=== PATIENT | female | born 1940 | race Caucasian/White ===

== ENCOUNTER 2020-06-30 11:46 | Emergency (ER) | payer OTHER, MEDICAID ==
[~2020-06-30] VITALS: Ht 154.9 cm; Wt 64.4 kg
[2020-06-30 12:03] VITALS: BP_SYST 128
[2020-06-30] MEDS ORDERED: DIPH-TET-PERTUS Vaccine 0.5 ML VIAL (ADACEL) I.M. ONE (12:15)
[2020-06-30] MEDS ORDERED: LIDOCAINE 1% 10 MG/ML, 20 ML MDV INJ ONE (12:15)
[2020-06-30 12:43] VITALS: BP_SYST 128
== END 2020-06-30 12:43 | disposition home or self-care (01) ==
LOC: SED 11:46
DX: S51.811A Laceration without foreign body of right forearm, initial encounter (principal); I10 Essential (primary) hypertension; W25.XXXA Contact with sharp glass, initial encounter; Y93.89 Activity, other specified; Y92.89 Other specified places as the place of occurrence of the external cause; Y99.8 Other external cause status
CPT/HCPCS: 12001; 90471; 90715; 99283; J2001

== ENCOUNTER 2020-07-03 12:23 | Emergency (ER) | payer OTHER, MEDICAID ==
[~2020-07-03] VITALS: Ht 157.5 cm; Wt 64.4 kg
--- NOTE | 2020-07-03 12:35 | NUR ---
Patient to ER bed 03 to gown for evaluation. Side rails up.
[2020-07-03 12:36] VITALS: BP_SYST 147
--- NOTE | 2020-07-03 12:40 | NUR ---
ER Dr. Colunga at bedside examining patient.
[2020-07-03 12:42] VITALS: BP_SYST 147
--- NOTE | 2020-07-03 12:44 | NUR ---
pt to bed 3. alert and oriented. wound dressing removed. wound well approximated and sutures inplace. No drainage noted.
--- NOTE | 2020-07-03 12:50 | NUR ---
Patient given written and verbal discharge instructions and verbalizes understanding. ER MD discussed with patient the results and treatment provided. Patient in stable condition. ID arm band removed. No prescriptions given. Patient educated on pain management and to follow up with PMD. Pain Scale 0. Opportunity for questions provided and answered. Medication side effect fact sheet provided.
== END 2020-07-03 12:50 | disposition home or self-care (01) ==
LOC: SED 12:23
DX: S51.811D Laceration without foreign body of right forearm, subsequent encounter (principal); I10 Essential (primary) hypertension; W45.8XXD Other foreign body or object entering through skin, subsequent encounter
CPT/HCPCS: 99281

== ENCOUNTER 2020-09-12 19:22 | Inpatient (IN) | payer OTHER, MEDICAID ==
[~2020-09-12] VITALS: Ht 154.9 cm; Wt 71.2 kg
[2020-09-12 19:25] VITALS: BP_SYST 167
--- NOTE | 2020-09-12 19:25 | NUR ---
Patient to ER bed 3 to gown for evaluation. Side rails up. Report given to REYNOLD.
--- NOTE | 2020-09-12 19:28 | NUR ---
PT AAO OCCITAN SPEAKING C/O CHEST PAIN X ONE WEEK THAT BECAME WORSE TODAY. PT REPORTS FEELING NUMBNESS IN HER LEFT ARM AND REPORTS PAIN 5-6/10. PT PHYSICIAN TOLD HER TO COME IN FOR EVALUATION. V/S STABLE.
--- NOTE | 2020-09-12 19:30 | NUR ---
ER Dr. PRADO at bedside examining patient.
--- NOTE | 2020-09-12 19:58 | NUR ---
Dr. Baker bedside for pt eval
[2020-09-12] MEDS ORDERED: ASPIRIN 325 MG TABLET PO ONE (20:00)
[2020-09-12 20:25] LABS: BASOPHILS # (AUTO) 0.2 K/uL (0.0-0.2); BASOPHILS % (AUTO) 2.3 % (0.0-2.0); EOSINOPHILS # (AUTO) 0.2 K/uL (0.0-0.4); EOSINOPHILS % (AUTO) 3.4 % (0.0-4.0); HEMATOCRIT 39.4 % (36-48); HEMOGLOBIN 13.1 g/dL (12.0-16.0); LYMPHOCYTES # (AUTO) 2.2 K/uL (1.0-5.5); LYMPHOCYTES % (AUTO) 30.8 % (20.5-51.5); MEAN CORPUSCULAR HEMOGLOBIN 28 pg (27-31); MEAN CORPUSCULAR HGB CONC 33 % (32-36); MEAN CORPUSCULAR VOLUME 86 fL (79.0-98.0); MONOCYTES # (AUTO) 0.8 K/uL (0.0-1.0); MONOCYTES % (AUTO) 11.3 % (1.7-9.3); NEUTROPHILS # (AUTO) 3.7 K/uL (1.8-7.7); NEUTROPHILS % (AUTO) 52.2 % (40.0-70.0); PLATELET COUNT (AUTO) 220 K/uL (130-430); RED CELL DISTRIBUTION WIDTH 14.4 % (9.0-15.0); WHITE BLOOD COUNT (AUTO) 7.1 K/uL (4.8-10.8)
--- NOTE | 2020-09-12 20:33 | NUR ---
Pt taken to Radiology in stable condition
[2020-09-12 20:34] LABS: ANION GAP 11 (5-15); CALCIUM 8.8 mg/dL (8.4-11.0); CHLORIDE 104 mmol/L (98-107); CREATININE 0.44 mg/dL (0.55-1.30); GLUCOSE 96 mg/dL (70-99); POTASSIUM 3.8 mmol/L (3.5-5.1); SODIUM SERUM 141 mmol/L (136-145); UREA NITROGEN, BLOOD 13 mg/dL (8-21)
[2020-09-12 20:36] LABS: PROTHROMBIN TIME 10.1 SECS (9.5-12.5)
[2020-09-12 20:40] LABS: ALANINE AMINOTRANSFERASE 33 U/L (12-78); ASPARTATE AMINOTRANSFERASE 21 U/L (10-37); TOTAL BILIRUBIN 0.2 mg/dL (0.0-1.0)
--- NOTE | 2020-09-12 20:45 | NUR ---
Pt back from Radiology, well tolerated
--- NOTE | 2020-09-12 21:40 | NUR ---
Tele Med consulted with Pt bedside, Dr. Baker aware recommendation is to be admitted for Obs
[2020-09-12] MEDS ORDERED: CLOP75TA32 PO (21:59)
[2020-09-12] MEDS ORDERED: hydrALAZINE HCL 20 MG/ML VIAL IVP ONE (22:00)
[2020-09-12] MEDS ORDERED: NITROGLYCERIN 1 INCH (GM) OINT. TP PRN (22:00)
[2020-09-12] MEDS ORDERED: SIMV40TA2 PO (22:02)
[2020-09-12] MEDS ORDERED: AMLO2.5T2 PO (22:02)
--- NOTE | 2020-09-12 22:08 | NUR ---
Tele bed has been officially requested with Floor
--- NOTE | 2020-09-12 22:30 | NUR ---
Pt taken to CT Scan with Contrast study in stable condition
[2020-09-12 22:37] LABS: BILIRUBIN,URINE NEGATIVE (NEGATIVE); BLOOD, URINE 1+ (NEGATIVE); CLARITY/URINE CLEAR (CLEAR); COLOR,URINE YELLOW (YELLOW); GLUCOSE,URINE NEGATIVE (NEGATIVE); KETONES,URINE NEGATIVE (NEGATIVE); LEUKOCYTE ESTERASE ,URINE NEGATIVE (NEGATIVE); NITRITE, URINE NEGATIVE (NEGATIVE); PROTEIN URINE NEGATIVE (NEGATIVE); UROBILINOGEN,URINE 0.2 (0.2-1.0)
[2020-09-12] MEDS ORDERED: IOHEXOL 350 mgI/mL, 150 ML INFUS..BTL IV ONE (22:41)
[2020-09-12 22:45] LABS: BACTERIA,URINE RARE /HPF (None Seen); WBC,URINE 0-3 /HPF (0-3)
--- NOTE | 2020-09-12 22:48 | NUR ---
Pt back from Radiology, well tolerated
[2020-09-12 23:25] VITALS: BP_SYST 156
--- NOTE | 2020-09-12 23:25 | NUR ---
ADMISSION NOTE Received patient from ER via gurney. Patient admitted with diagnosis of RULE OUT MYOCARDIAL INFARCTION, RULE OUT CVA. Patient is awake, alert, oriented X . Patient oriented to hospital room, call light, toileting, pain management and safety-teach back done. Patient informed that MARTA will be HER nurse and that their room number is 107A. Personal belongings checked and Belongings List documented. Call light within reach.
--- NOTE | 2020-09-12 23:30 | NUR ---
Patient will be admitted to care of Dr. Streeter. Admitted to Tele unit. Will go to room 107. Belongings list completed. Complete and up to date summary report printed. SBAR report to be given at bedside with opportunity for questions.
--- NOTE | 2020-09-12 23:30 | NUR ---
Transfer to Tele via ACLS protocol. Licensed nurse present. IV present no signs or symptoms of infiltration.
--- NOTE | 2020-09-12 23:42 | NUR ---
PATIENT MOOD DURING INITIAL ADMISSION ASSESSMENT, PATIENT WAS ASKED IF SHE HAS BEEN EXPERIENCING ANY STRESS. SHE RESPONDED WITH IMMEDIATELY CRYING AND MOURNING ABOUT THE EVENTS HAPPENING IN [place] AND [place]. SHE STATES SHE FEELS VERY DEPRESSED BECAUSE SHE HAS FAMILY THERE AND SPENT A LARGE AMOUNT OF HER LIFE IN [place].
[2020-09-13] VITALS: BP_SYST 106
--- NOTE | 2020-09-13 01:00 | NUR ---
RN ROUNDS PT RESTING IN BED, BREATHING EVEN AND UNLABORED TO ROOM AIR. PT DENIES ANY PAIN AT THIS TIME. NO S/S OF ACUTE DISTRESS NOTED. LEFT FA 20G INTACT, SL. CALL LIGHT WITHIN REACH. SIDE RAILS UP X3. BED ALARM ON, LOCKED IN LOWEST POSITION. SAFETY AND FALL PRECAUTIONS MAINTAINED. WILL CONTINUE TO MONITOR.
--- NOTE | 2020-09-13 01:04 | NUR ---
Consultation Paged Reason for Consultation: R/O [place] Was consult called: Y Person who was notified: Estrellita Consulting Physician: Dr. Oliva (Dr. Figueroa is senior commissions analyst) Ordering Physician: Darin Arroyo
--- NOTE | 2020-09-13 04:27 | NUR ---
Swallow Eval Called Called and left a message to Abby, regarding swallow eval, ordered by Darin Arroyo
--- NOTE | 2020-09-13 06:52 | NUR ---
CLOSING NOTES PT RESTING IN BED, BREATHING EVEN AND UNLABORED TO ROOM AIR. NO SIGNS OF RESPIRATORY DISTRESS NOTED. LEFT FA 20G INTACT, SL. CALL LIGHT WITHIN REACH. SIDE RAILS UP X3. BED ALARM ON, LOCKED IN LOWEST POSITION. SAFETY AND FALL PRECAUTIONS MAINTAINED. ALL NEEDS ARE MET THROUGHOUT SHIFT. WILL CONTINUE TO MONITOR UNTIL ENDORSE TO DAY SHIFT RN.
[2020-09-13 07:22] LABS: ANION GAP 11 (5-15); CALCIUM 8.9 mg/dL (8.4-11.0); CHLORIDE 105 mmol/L (98-107); CREATININE 0.48 mg/dL (0.55-1.30); GLUCOSE 131 mg/dL (70-99); POTASSIUM 3.9 mmol/L (3.5-5.1); SODIUM SERUM 141 mmol/L (136-145); UREA NITROGEN, BLOOD 15 mg/dL (8-21)
--- NOTE | 2020-09-13 08:00 | NUR ---
Neuro/cardio Patient alert/oriented x4 chinese/yoruba speaking denies any chest pain , no left arm numbness , able to swallow well , seen and examined by Dr. Streeter , all medication explained to patient and plan of care verbalized understanding, ambulate with steady gait no dizziness safety/fall precaution initiated.
[2020-09-13] MEDS: ASPIRIN 81 MG TAB.CHEW PO SCH (08:12)
[2020-09-13] MEDS: amLODIPine BESYLATE 5 MG TABLET PO SCH (08:13)
[2020-09-13 08:14] VITALS: BP_SYST 129
--- NOTE | 2020-09-13 08:43 | NUR ---
ATTENDING MDON CALL, DR BEYER CANCELLED THE CONSULT FOR SWALLOWING EVAL. LEFT A MESSAGE WITH GABRIELLA SPEECH THERAPIST.
[2020-09-13] MEDS ORDERED: ATORVASTATIN 20 MG TABLET PO SCH (09:00)
[2020-09-13] MEDS ORDERED: CLOPIDOGREL BISULFATE 75 MG TABLET PO ONE (09:00)
[2020-09-13 09:28] LABS: BASOPHILS % (AUTO) 0.5 % (0.0-2.0); EOSINOPHILS # (AUTO) 0.1 K/uL (0.0-0.4); EOSINOPHILS % (AUTO) 0.6 % (0.0-4.0); HEMATOCRIT 39.6 % (36-48); HEMOGLOBIN 13.2 g/dL (12.0-16.0); LYMPHOCYTES # (AUTO) 1.8 K/uL (1.0-5.5); LYMPHOCYTES % (AUTO) 17.7 % (20.5-51.5); MEAN CORPUSCULAR HEMOGLOBIN 29 pg (27-31); MEAN CORPUSCULAR HGB CONC 33 % (32-36); MEAN CORPUSCULAR VOLUME 86 fL (79.0-98.0); MONOCYTES # (AUTO) 0.5 K/uL (0.0-1.0); MONOCYTES % (AUTO) 4.6 % (1.7-9.3); NEUTROPHILS # (AUTO) 7.7 K/uL (1.8-7.7); NEUTROPHILS % (AUTO) 76.6 % (40.0-70.0); PLATELET COUNT (AUTO) 223 K/uL (130-430); RED CELL DISTRIBUTION WIDTH 14.7 % (9.0-15.0)
[2020-09-13 10:27] LABS: CHOLESTEROL 228 mg/dL (<200); HDL CHOLESTEROL 73 mg/dL (>55); LDL CHOLESTEROL 140 mg/dL (<100); TRIGLYCERIDES 91 mg/dL (30-150)
[2020-09-13 11:12] VITALS: BP_SYST 119
--- NOTE | 2020-09-13 11:14 | NUR ---
Mobility Ambulate to room with steady gait denies chest pain , vital sign wnl
[2020-09-13 15:36] VITALS: BP_SYST 124
--- NOTE | 2020-09-13 19:45 | NUR ---
Opening notes Pt AAOx4, VSS, no s/s distress noted. Pt denies any pain. Neurovasc checks intact. IV saline locked L.FA 20G clear and patent. Pt updated w/ plan of care re MRI tomorrow, pt verbalized understanding. Pt ambulates to the bathroom, steady gait. Call light within reach. Bed low, locked, siderails up x2. To monitor.
[2020-09-13 20:00] VITALS: BP_SYST 114
--- NOTE | 2020-09-13 23:45 | NUR ---
Rounds Pt asleep, easily awakens. VSS. No distress noted. Safety maintained. Call light within reach. To monitor.
[2020-09-13 23:56] VITALS: BP_SYST 115
--- NOTE | 2020-09-14 00:45 | NUR ---
Rounds Pt asleep, no s/s distress noted. Call light within reach. Bed low, locked, siderails up x2. Will continue to monitor.
--- NOTE | 2020-09-14 04:30 | NUR ---
Rounds Pt asleep, no s/s distress noted. Call light within reach. Bed low, locked, siderails up x2. Will continue to monitor.
[2020-09-14 06:19] LABS: BASOPHILS % (AUTO) 0.3 % (0.0-2.0); EOSINOPHILS # (AUTO) 0.2 K/uL (0.0-0.4); EOSINOPHILS % (AUTO) 3.1 % (0.0-4.0); HEMATOCRIT 37.5 % (36-48); HEMOGLOBIN 12.6 g/dL (12.0-16.0); LYMPHOCYTES # (AUTO) 1.5 K/uL (1.0-5.5); LYMPHOCYTES % (AUTO) 22.5 % (20.5-51.5); MEAN CORPUSCULAR HEMOGLOBIN 29 pg (27-31); MEAN CORPUSCULAR HGB CONC 34 % (32-36); MEAN CORPUSCULAR VOLUME 85 fL (79.0-98.0); MONOCYTES # (AUTO) 0.7 K/uL (0.0-1.0); MONOCYTES % (AUTO) 10.2 % (1.7-9.3); NEUTROPHILS # (AUTO) 4.2 K/uL (1.8-7.7); NEUTROPHILS % (AUTO) 63.9 % (40.0-70.0); PLATELET COUNT (AUTO) 194 K/uL (130-430); RED BLOOD CELL COUNT(AUTO) 4.39 MIL/uL (4.2-6.2); RED CELL DISTRIBUTION WIDTH 14.2 % (9.0-15.0); WHITE BLOOD COUNT (AUTO) 6.5 K/uL (4.8-10.8)
--- NOTE | 2020-09-14 06:45 | NUR ---
Closing notes Pt asleep, easily awakens, no s/s distress noted. Pt denies chest pain. IV saline locked L.FA 20G clear and patent. Call light within reach. Bed low, locked, siderails up x2. To endorse to AM nurse.
[2020-09-14 06:46] LABS: ANION GAP 8 (5-15); CALCIUM 8.5 mg/dL (8.4-11.0); CHLORIDE 104 mmol/L (98-107); CREATININE 0.62 mg/dL (0.55-1.30); GLUCOSE 105 mg/dL (70-99); POTASSIUM 3.9 mmol/L (3.5-5.1); SODIUM SERUM 138 mmol/L (136-145); UREA NITROGEN, BLOOD 30 mg/dL (8-21)
--- NOTE | 2020-09-14 07:31 | NUR ---
Opening Note received SBAR report from feeder/folder RN, patient ambulated to bathroom, steady gait noted, no acute distress noted, respirations even and unlabored on room air, educated patient on use of call light and asked to call for assistance, patient verbalized understanding, call light in reach, educated patient on use of bed alarm for patient safety, patient verbalized understanding, patient refusing bed alarm, bed in low and locked position.
[2020-09-14] MEDS: ASPIRIN 81 MG TAB.CHEW PO SCH (07:59)
[2020-09-14 08:00] VITALS: BP_SYST 112
[2020-09-14] MEDS: amLODIPine BESYLATE 5 MG TABLET PO SCH (08:00)
--- NOTE | 2020-09-14 08:20 | NUR ---
Physician Rounds Dr. Sweeney at bedside examining patient.
--- NOTE | 2020-09-14 08:30 | NUR ---
Spoke with Radiology spoke with Vivi from radiology, they are aware of orders for MRI, informed her that MRI checklist and contrast consent have been completed by patient and are in the chart.
[2020-09-14] MEDS ORDERED: CLOPIDOGREL BISULFATE 75 MG TABLET PO SCH (09:00)
--- NOTE | 2020-09-14 10:04 | NUR ---
CONSULTATION PAGED/CALLED Reason for Consultation: [] CVA VS TIA Person Who was Notified: [] NUNO Consulting Physician: [] DR COSTELLO Senior Ux Developer Specialty: [] NEURO Ordering Physician: [] DR SANCHEZ
--- NOTE | 2020-09-14 10:56 | NUR ---
RN Rounds patient resting in bed, respirations even and unlabored on room air, patient denies any chest pain or shortness of breath, patient denies any numbness, weakness, or tingling, no acute distress noted.
[2020-09-14 11:33] VITALS: BP_SYST 120
--- NOTE | 2020-09-14 12:51 | NUR ---
P.T. NOTES P.T. EVAL COMPLETED; REFER TO EVAL FOR DETAILS; ENDORSED TO NURSING.
--- NOTE | 2020-09-14 14:13 | NUR ---
Physician Rounds Dr. Arellano at bedside examining patient.
--- NOTE | 2020-09-14 14:15 | NUR ---
Called Radiology spoke with Vivi from Radiology, per Vivi patient will be taken to MRI around 1500 due to another patient being in MRI at this time.
[2020-09-14 15:15] VITALS: BP_SYST 134
--- NOTE | 2020-09-14 15:51 | NUR ---
to MRI patient taken to MRI via wheelchair, respirations even and unlabored, no acute distress noted.
--- NOTE | 2020-09-14 16:48 | NUR ---
back from MRI patient brought back to room from MRI via wheelchair, patient resting in bed, respirations even and unlabored on room air, no acute distress noted, patient denies any pain.
--- NOTE | 2020-09-14 17:18 | NUR ---
Called Radiology Dr. Sunny NAVA at bedside, patient states this is her brother, per patient and her brother they would like MRI scan read as soon as possible so that patient can be discharged home, called radiology, spoke with Donn, informed him that patient is requesting to have MRI results read tonight so that she can be discharged home, per Donn he will follow up with the radiologist, informed patient and her brother, patient and her brother verbalized understanding.
--- NOTE | 2020-09-14 17:40 | NUR ---
Spoke with Physician/Called Radiology spoke with Dr. Arellano, per Dr. Arellano he would like the MRI to be read tonight so patient may possibly be discharged home, called radiology and spoke with Donn, informed him that Dr. Arellano would like MRI to be read tonight, per Donn he spoke with the radiologist and he will read it tonight.
--- NOTE | 2020-09-14 18:33 | NUR ---
Spoke with Physician spoke with Dr. Arellano, informed him of MRI brain/head results, per Dr. Arellano patient is cleared for discharge home on plavix and aspirin, follow up with Dr. Arellano in two weeks, verified with read back, paged Dr. Sweeney for discharge order, awaiting call back.
--- NOTE | 2020-09-14 18:44 | NUR ---
Spoke with Physician spoke with Dr. Sweeney, informed him that per Dr. Arellano patient is cleared for discharge home on plavix and aspirin, new orders received, verified with read back.
[2020-09-14] MEDS ORDERED: ASA81 PO (18:46)
[2020-09-14 18:58] VITALS: BP_SYST 113
--- NOTE | 2020-09-14 19:00 | NUR ---
Discharge Order informed patient of discharge order, patient verbalized understanding, informed patient of medications for discharge home including new orders for over the counter aspirin, patient verbalized understanding, informed patient to follow up with Dr. Arellano in two weeks, patient verbalized understanding, patient requesting to have RN go over discharge packet with her son Kilo, called patients son Kilo, educated him on medications for discharge home including new orders for over the counter aspirin, informed him to have patient follow up with Dr. Arellano in two weeks, Kilo verbalized understanding, allowed time for questions, per Kilo he will be in to cotton picker operator his mother for discharge home in about twenty minutes, educated patient on purpose and procedure for IV catheter removed, patient verbalized understanding, IV catheter removed, catheter intact, no bleeding, patient getting dressed for discharge home.
--- NOTE | 2020-09-14 19:14 | NUR ---
Closing Note SBAR report given to receiving RN, patient resting in bed, respirations even and unlabored on room air, no acute distress noted, patient awaiting ganesh Boateng for discharge home, educated patient on use of call light and asked to call for assistance, patient verbalized understanding, call light in reach, educted patient on use of bed alarm for patient safety, patient verbalized understanding, patient refusing bed alarm, bed in low and locked position, care endorsed to Jolene RN.
--- NOTE | 2020-09-14 19:30 | NUR ---
Initial Note: Patient is walking around by bedside. Home meds from pharmacy returned to patient at this time. No acute distress. Even, nonlabored breathing on room air. Bed is locked at lowest position. Side rails up x2. Will continue with plan of care.
--- NOTE | 2020-09-14 19:47 | NUR ---
D/C Patient: Patient given medication reconciliation form and D/C instructions. Exit Care provided. Patient verbalized understanding. MD discussed with patient the results and treatment provided. Ambulatory with steady gait for discharge to home. Patient in stable condition, ID band removed. IV catheter removed, intact and dressing applied, no active bleeding. Patient educated on pain management. All belongings sent with patient.
[2020-09-14] MEDS ORDERED: SIMVASTATIN 40 MG TABLET PO SCH (21:00)
[2020-09-15] MEDS ORDERED: ASPI-1393 PO (10:30)
--- NOTE | 2020-09-15 15:29 | NUR ---
Discharge Follow Up call: [employer]ISTICS [employer]AD phoned pt and spoke with son Nigel @ [phone]. Per Nigel, pt is "doing great". Pt was able to fill her prescription and is aware that a follow up appointment is needed for neuro and cardio. Pt will be utilizing her own neurologist and inspector of weights and measures. Pt does not have any questions/concerns about the discharge instructions. No further SS needs identified at this time.
== END 2020-09-14 19:47 | disposition home or self-care (01) | DRG 69 ==
LOC: SED 19:22 → STU 21:57
PROVIDERS: ADMIT Hospitalist; ATTEND Hospitalist
DX: G45.9 Transient cerebral ischemic attack, unspecified (principal); G90.8 Other disorders of autonomic nervous system; E78.5 Hyperlipidemia, unspecified; I10 Essential (primary) hypertension; I25.10 Atherosclerotic heart disease of native coronary artery without angina pectoris; M19.011 Primary osteoarthritis, right shoulder; J45.909 Unspecified asthma, uncomplicated; E78.00 Pure hypercholesterolemia, unspecified; M16.11 Unilateral primary osteoarthritis, right hip; Z20.828 Contact with and (suspected) exposure to other viral communicable diseases; Z88.0 Allergy status to penicillin; Z79.899 Other long term (current) drug therapy; Z90.710 Acquired absence of both cervix and uterus; Z91.010 Allergy to peanuts; Z91.013 Allergy to seafood; Z91.018 Allergy to other foods; Z95.5 Presence of coronary angioplasty implant and graft; Z79.02 Long term (current) use of antithrombotics/antiplatelets; I25.2 Old myocardial infarction
CPT/HCPCS: 36415; 70450-TC; 70496; 70551; 71045; 80048; 80053; 80061; 81000-TC; 82550-TC; 83036; 83735-TC; 83880; 84484; 85025; 85379; 85610-TC; 93005; 93306; 96374; 99291; G0378; J0360; Q9967